=== PATIENT | male | born 1935 | race African-American/Black ===

== ENCOUNTER 2022-02-02 09:33 | Inpatient (IN) | payer OTHER ==
[2022-02-02] MEDS ORDERED: NA CHLORIDE 0.9% 500 ML ONE (10:36)
[2022-02-02 10:38] LABS: Hematocrit 32.6 % (39.6-49.0); MPV 8.1 fL (7.6-11.3); RBC Red Blood Cell Count 3.68 M/uL (4.33-5.43)
--- NOTE | 2022-02-02 10:49 | RAD REPORT ---
EXAM DESCRIPTION: CT - Head Brain Wo Cont - 02/02/2022 10:37 am CLINICAL HISTORY: AMS COMPARISON: No comparisons TECHNIQUE: All CT scans are performed using dose optimization technique as appropriate and may inclu de automated exposure control or mA/KV adjustment according to patient size. FINDINGS: No intracranial hemorrhage, hydrocephalus or extra-axial fluid collection.No areas of brai n edema or evidence of midline shift. Cerebral atrophy with moderate chronic small vessel ischemic ch anges. The paranasal sinuses and mastoids are clear. The calvarium is intact. IMPRESSION: No acute intracranial abnormality.
[2022-02-02 10:53] LABS: Albumin 2.4 g/dL (3.4-5.0); Bilirubin Total 0.9 mg/dL (0.2-1.0); Magnesium 1.8 mg/dL (1.8-2.4); Potassium 3.9 mmol/L (3.5-5.1); Protein, Total 6.1 g/dL (6.4-8.2); Troponin High Sensitivity 15.4 pg/mL (<58.9)
[2022-02-02 11:27] LABS: Urine Blood 3+ (Negative); Urine Glucose Negative (Negative); Urine Protein 3+ (Negative); Urine Specific Gravity 1.025 (1.005-1.030); Urine pH 7.5 (5.0-7.0)
--- NOTE | 2022-02-02 11:27 | RAD REPORT ---
EXAM DESCRIPTION: RAD - Chest Single View - 02/02/2022 11:15 am CLINICAL HISTORY: confusion COMPARISON: Chest Single View dated 02/23/2017 FINDINGS: Lines: None. Lungs: Question right upper lobe pulmonary nodules. The left lung is clear. Radiopacity overlying the patient's body obscures portions of the right lung base . Pleural: No significant pleural effusions or pneumothorax. Cardiac: The heart size is within normal limits. Bones: No acute fractures. Other: IMPRESSION: No definite acute process. Right upper lobe pulmonary nodules which can be reassessed wi th either follow-up chest radiograph in [address]
[2022-02-02 11:55] LABS: Urine Bacteria >50 /HPF (NONE SEEN); Urine Mucus 2+ /HPF (NONE SEEN); Urine RBC 20-50 /HPF (NONE SEEN); Urine Urothelial Cells <5 /HPF (NONE SEEN)
[2022-02-02] MEDS ORDERED: HYDRALAZINE HCL 20 MG/ML VIAL ONE (12:17)
[2022-02-02] MEDS ORDERED: CEFTRIAXONE 1000 MG/VIAL ONE (12:17)
[2022-02-02] MEDS ORDERED: NA CHLORIDE 0.9% 100 ML IV ONE (12:17)
--- NOTE | 2022-02-02 12:35 | ER ---
Nurse's Notes [facility] Name: Teo Mukherjee Jr Age: 86 yrs Sex: Male : 1935 Arrival Date: 02/02/2022 Time: 09:39 Bed 17 Private MD: Diagnosis: UTI/ Urinary tract infection, site not specified;Altered mental status, unspecified Presentation: 02/02 09:40 Chief complaint: EMS states: CLOUDY URINE. Coronavirus screen: At this time, the client bp does not indicate any symptoms associated with coronavirus-19. Ebola Screen: No symptoms or risks identified at this time. Initial Sepsis Screen: Does the patient meet any 2 criteria? No. Patient's initial sepsis screen is negative. Does the patient have a suspected source of infection? No. Patient's initial sepsis screen is negative. Risk Assessment: Do you want to hurt yourself or someone else? Patient reports no desire to harm self or others. Onset of symptoms is unknown. Care prior to arrival: Glucose check: 111. 09:40 Method Of Arrival: EMS: [facility] bp 09:40 Acuity: ISABELA 3 bp Triage Assessment: :43 General: Appears in no apparent distress. comfortable, unkempt, malnourished, Behavior bp is flat, listless. Pain: Unable to use pain scale. Does not appear to understand pain scale. EENT: No deficits noted. Neuro: Level of Consciousness is listless. Cardiovascular: No deficits noted. Respiratory: No deficits noted. GI: No signs and/or symptoms were reported involving the gastrointestinal system. : Parent/caregiver report the patient having ODIFEROUS, CLOUDY URINE. Derm: No deficits noted. Musculoskeletal: No deficits noted. Historical: - Allergies: :43 No Known Allergies; bp - Home Meds: :43 Unable to obtain [Active]; bp - PMHx: :43 DEGENERATIVE JOINT DISEASE; bp - Immunization history:: Adult Immunizations unknown. - Social history:: Smoking status: Patient denies any tobacco usage or history of. - Unable to obtain history due to: poor historians. Screenin:45 Abuse screen: Denies threats or abuse. Denies injuries from another. Nutritional bp screening: No deficits noted. Tuberculosis screening: No symptoms or risk factors identified. Fall Risk None identified. Assessment: :45 General: SEE TRIAGE NOTE. bp 10:49 Reassessment: PT RETURNED FROM CT. bp 11:35 Reassessment: No changes from previously documented assessment. Patient and/or family bp updated on plan of care and expected duration. Pain level reassessed. BROOKS PLACED, PURULENCE NOTED UNDER FORESKIN. 12:50 Reassessment: D/C ON HOLD PER PROVIDER. bp 15:00 Reassessment: No changes from previously documented assessment. Patient and/or family bp updated on plan of care and expected duration. Pain level reassessed. ADMIT INITIATED. 17:00 Reassessment: SEE ER HOLD. bp 19:57 Reassessment: Patient appears in no apparent distress at this time. Registration was joan called and is at bedside, as the pt is being admitted and has a room assignment of 224. Report is being called now. 20:02 Reassessment: Hillary MCGEE is in a pt room, but will call me back for report. joan 20:10 Reassessment: Report given to Hillary and she said that they will get an air mattress joan for the pt, for comfort. Vital Signs: 09:40 BP 170 / 101; Pulse 80; Resp 16; Temp 98.3; Pulse Ox 99% ; bp 09:41 BP 171 / 100; Pulse 74; Resp 16; Temp 98.3(O); Pulse Ox 100% ; Weight 52.16 kg (R); mb7 Height 5 ft. 10 in. (177.80 cm) (R); 10:30 BP 170 / 102; Pulse 65; Resp 16; Pulse Ox 99% ; bp 11:30 BP 183 / 91; Pulse 72; Resp 15; Pulse Ox 99% ; bp 12:30 BP 114 / 63; Pulse 70; Resp 15; Pulse Ox 98% ; bp 13:30 BP 146 / 73; Pulse 74; Resp 16; Pulse Ox 97% ; bp 14:30 BP 127 / 70; Pulse 67; Resp 16; Pulse Ox 97% ; bp 15:30 BP 144 / 87; Pulse 73; Resp 16; Pulse Ox 98% ; bp 16:30 BP 123 / 71; Pulse 59; Resp 16; Pulse Ox 98% ; bp 17:30 BP 149 / 84; Pulse 69; Resp 16; Pulse Ox 99% ; bp 18:30 BP 157 / 86; Pulse 77; Resp 15; Pulse Ox 99% ; bp 19:56 BP 135 / 68; Pulse 72; Resp 18; Temp 98.3; Pulse Ox 97% on R/A; Pain 0/10; joan 09:41 Body Mass Index 16.50 (52.16 kg, 177.80 cm) mb7 ED Course: 09:39 Patient arrived in ED. iw 09:40 Clemente Bell, RN is Primary Nurse. bp 09:41 Patient has correct armband on for positive identification. Bed in low position. Call mb7 light in reach. Side rails up X 1. Door closed. Noise minimized. Warm blanket given. 09:42 Triage completed. bp 09:43 Arm band placed on. bp 10:03 Jennifer Ayala PA is PHCP. en 10:03 Shady Lester MD is Attending Physician. en 10:35 Inserted saline lock: 18 gauge in left EJ, using aseptic technique. Blood collected. bp 10:39 CT Head Brain wo Cont In Process Unspecified. EDMS 11:17 CXR XRAY In Process Unspecified. EDMS 11:28 Brooks cath inserted, using sterile technique, 16 Fr., by nh, balloon inflated, to mb7 gravity drainage, clamped. urine specimen collected. returned cloudy urine. Patient tolerated well. 11:28 Urine Microscopic Only Sent. mb7 11:37 EKG done, by ED staff, reviewed by Jennifer ELIAS. mb7 12:52 Cachorro Fierro MD is Hospitalizing Provider. en 19:56 No provider procedures requiring assistance completed. joan 19:56 Patient admitted, IV remains in place. joan Administered Medications: 10:18 CANCELLED (Other Intervention Used): NS 0.9% 1000 ml IV at 1 bolus Per protocol; 1000 bp mL bolus 10:49 Drug: NS 0.9% 500 ml Route: IV; Rate: 1 bolus; Site: left jugular; bp 12:51 Follow up: IV Status: Completed infusion; IV Intake: 500ml bp 12:15 Drug: Rocephin (cefTRIAXone) 1 grams Route: IV; Rate: bolus; Site: left jugular; bp 12:51 Follow up: IV Status: Completed infusion; IV Intake: 100ml bp 12:15 Drug: hydrALAZINE 10 mg Route: IVP; Site: left jugular; bp 12:52 Follow up: Response: No adverse reaction bp Medication: 09:45 VIS not applicable for this client. bp Intake: 12:51 IV: 100ml; Total: 100ml. bp 12:51 IV: 500ml; Total: 600ml. bp Outcome: 12:34 Discharge ordered by MD. en 12:53 Decision to Hospitalize by Provider. en 19:56 Condition: stable joan 19:56 Admitted to joan 21:03 Patient left the ED. joan Signatures: Dispatcher [employer] EDSalena Turner RN RN iw Peltier, Brian, RN RN Racheal Riley mb7 Justine Pagan RN RN bo Newkirk, Elizabeth, PA PA en
--- NOTE | 2022-02-02 12:35 | EDPHYS ---
Physician Documentation [facility] Name: Teo Mukherjee Jr Age: 86 yrs Sex: Male : 1935 Arrival Date: 02/02/2022 Time: 09:39 Bed 17 Private MD: ED Physician Shady Lester HPI: 02/02 10:53 This 86 yrs old Black Male presents to ER via EMS with unknown complaint. en 10:53 86 yo M presents to ED with for intermittent confusion over past 2 days, en hallucinating, and strong smelling urine. Pt and family are poor historians. They deny medical hx, but pt is bed bound with BUE/LE chronic contractures. Pt reports PSHx of bowel resection > 10 years ago for unk reason. Mild abdominal pain without F/C/N/V. Normal bowl movements without diarrhea, melena, hematochezia. Pt reports urinary hesitancy without dysuria or hematuria. no previous UTIs per . Pt is currently A\\T\\O x 3 and currently at baseline mentation per .. Historical: - Allergies: 09:43 No Known Allergies; bp - Home Meds: 09:43 Unable to obtain [Active]; bp - PMHx: 09:43 DEGENERATIVE JOINT DISEASE; bp - Immunization history:: Adult Immunizations unknown. - Social history:: Smoking status: Patient denies any tobacco usage or history of. - Unable to obtain history due to: poor historians. ROS: 10:53 Constitutional: Negative for fever, chills, and weight loss. en 10:53 Constitutional: Positive for decreased po intake x 2 days. 10:53 Abdomen/GI: Positive for abdominal pain, mild diffuse abdominal pain, Negative for nausea, vomiting, and diarrhea, constipation, hematemesis, black/tarry stool. 10:53 Back: Negative for 10:53 : Positive for foul smelling urine. 10:53 MS/extremity: Positive for chronic contractures, not ambulatory. 10:53 Skin: Negative for rash. 10:53 Neuro: Positive for intermittent confusion. 10:53 Psych: Positive for auditory hallucinations. 10:53 All other systems are negative. Exam: 10:53 Constitutional: The patient appears elderly appearing, cachectic male, bed dependent en with chronic contractures 10:53 Eyes: Pupils: no acute changes, equal, round, and reactive to light and accomodation, Extraocular movements: no acute changes, Conjunctiva: normal. 10:53 ENT: Dental exam: dental caries. 10:53 Neck: DROM 2/2 chronic deconditioning. No midline TTP or meningismus. 10:53 Cardiovascular: Rate: normal, Rhythm: regular, Pulses: no pulse deficits are appreciated, Heart sounds: normal, Edema: is not appreciated. 10:53 Respiratory: the patient does not display signs of respiratory distress, Respirations: normal, Breath sounds: are clear throughout. 10:53 Abdomen/GI: Bowel sounds: normal, Palpation: abdomen is soft and non-tender, mass, rebound tenderness, voluntary guarding, involuntary guarding. 10:53 Back: vertebral tenderness, is not appreciated. 10:53 : CVA tenderness, is absent. 10:53 Musculoskeletal/extremity: chronic BUE/BLE contractures, no peripheral edema. 10:53 Neuro: Orientation: is normal, appropriate for stated age, to person, place \\T\\ time. Mentation: appropriate for stated age. 12:35 Constitutional: This is a well developed, well nourished patient who is awake, alert, en and in no acute distress. Vital Signs: 09:40 BP 170 / 101; Pulse 80; Resp 16; Temp 98.3; Pulse Ox 99% ; bp 09:41 BP 171 / 100; Pulse 74; Resp 16; Temp 98.3(O); Pulse Ox 100% ; Weight 52.16 kg (R); mb7 Height 5 ft. 10 in. (177.80 cm) (R); 10:30 BP 170 / 102; Pulse 65; Resp 16; Pulse Ox 99% ; bp 11:30 BP 183 / 91; Pulse 72; Resp 15; Pulse Ox 99% ; bp 12:30 BP 114 / 63; Pulse 70; Resp 15; Pulse Ox 98% ; bp 13:30 BP 146 / 73; Pulse 74; Resp 16; Pulse Ox 97% ; bp 14:30 BP 127 / 70; Pulse 67; Resp 16; Pulse Ox 97% ; bp 15:30 BP 144 / 87; Pulse 73; Resp 16; Pulse Ox 98% ; bp 16:30 BP 123 / 71; Pulse 59; Resp 16; Pulse Ox 98% ; bp 17:30 BP 149 / 84; Pulse 69; Resp 16; Pulse Ox 99% ; bp 18:30 BP 157 / 86; Pulse 77; Resp 15; Pulse Ox 99% ; bp 19:56 BP 135 / 68; Pulse 72; Resp 18; Temp 98.3; Pulse Ox 97% on R/A; Pain 0/10; joan 09:41 Body Mass Index 16.50 (52.16 kg, 177.80 cm) mb7 MDM: 10:12 Patient medically screened. en 10:53 Differential Diagnosis altered mental status, UTI, CVA, failure to thrive, dehydration. en Data reviewed: vital signs, nurses notes, lab test result(s), EKG, radiologic studies. 11:44 Data interpreted: personnel monitor: rate is 75 beats/min, rhythm is sinus rhythm with en PVC, Pulse oximetry: on room air. 11:44 Test interpretation: by ED physician or midlevel provider: ECG. en 12:07 ED course: Pt has remained A\\T\\O x 3 throughout stay. normal labs other than UTI. No e/o en sepsis and Vitals stable. Will give single dose rocephin and send UA for culture. Will d/c home with omnicef pending cultures and PCP f/u. 12:33 ED course: Pt doing well. Reviewed labs. Pt does not meet admission criteria so will do en course of PO abx and close PCP f/u. ER return warnings reviewed. 12:35 Data reviewed: lab test result(s), urinalysis, bacteruria. en 12:49 ED course: Pt is more confu. ED course: Pt's family reports pt is now more confused and en A\\T\\O x 2. Thinks he is standing up. Will hold d/c and admit for confusion and UTI. ED course: Accepted by Dr Franz. 02/02 10:16 Order name: CBC w/o diff; Complete Time: 11:51 en 02/02 10:16 Order name: CMP; Complete Time: 11:51 en 02/02 10:16 Order name: UA en 02/02 10:16 Order name: Troponin High Sensitivity; Complete Time: 11:51 en 02/02 10:16 Order name: Magnesium; Complete Time: 11:51 en 02/02 10:20 Order name: Urine Microscopic Only bp 02/02 11:28 Order name: Urine Dipstick-Ancillary; Complete Time: 11:51 EDMS 02/02 11:51 Order name: Urine Culture en 02/02 14:19 Order name: Basic Metabolic Panel EDMS 02/02 14:19 Order name: Basic Metabolic Panel EDMS 02/02 14:19 Order name: CBC with Automated Diff EDMS 02/02 14:19 Order name: CBC with Automated Diff EDMS 02/02 14:19 Order name: Magnesium EDMS 02/02 14:19 Order name: Magnesium EDMS 02/02 10:16 Order name: EKG; Complete Time: 10:17 en 02/02 10:16 Order name: CT Head Brain wo Cont; Complete Time: 11:51 en 02/02 10:16 Order name: CXR XRAY; Complete Time: 11:51 en 02/02 10:20 Order name: EKG - Nurse/Tech; Complete Time: 11:37 bp 02/02 10:20 Order name: Cath; Complete Time: 11:28 bp 02/02 10:20 Order name: Urine Dipstick-Ancillary (obtain specimen); Complete Time: 11:28 bp 02/02 14:19 Order name: Heart Healthy EDMS 02/02 14:23 Order name: SARS-COV-2 RT PCR (Document "Date of Onset" if Symptomatic) eb Administered Medications: 10:18 CANCELLED (Other Intervention Used): NS 0.9% 1000 ml IV at 1 bolus Per protocol; 1000 bp mL bolus 10:49 Drug: NS 0.9% 500 ml Route: IV; Rate: 1 bolus; Site: left jugular; bp 12:51 Follow up: IV Status: Completed infusion; IV Intake: 500ml bp 12:15 Drug: Rocephin (cefTRIAXone) 1 grams Route: IV; Rate: bolus; Site: left jugular; bp 12:51 Follow up: IV Status: Completed infusion; IV Intake: 100ml bp 12:15 Drug: hydrALAZINE 10 mg Route: IVP; Site: left jugular; bp 12:52 Follow up: Response: No adverse reaction bp Disposition Summary: 02/02/22 12:53 Hospitalization Ordered Hospitalization Status: Inpatient Admission en Provider: Cachorro Fierro Condition: Stable(02/02/22 12:53) en Problem: new en Symptoms: are unchanged en Bed/Room Type: Standard en Location: Telemetry/MedSurg (Inpatient)(02/02/22 19:32) cg Room Assignment: 224(02/02/22 19:32) cg Diagnosis - UTI/ Urinary tract infection, site not specified(02/02/22 12:53) en - Altered mental status, unspecified en Forms: - Medication Reconciliation Form en - SBAR form en Signatures: Dispatcher [employer] Maggi Loco RN RN cg Clemente Bell RN RN bp Jennifer Ayala PA PA en Corrections: (The following items were deleted from the chart) 10:18 10:16 NS 0.9% 1000 ml IV at 1 bolus Per protocol; 1000 mL bolus ordered. en bp 12:52 12:34 Home en en 12:52 12:34 Stable en en 12:52 12:34 UTI/ Urinary tract infection, site not specified en en 12:52 12:34 Essential (primary) hypertension en en 18:42 12:53 Telemetry/MedSurg (Inpatient) en bp 18:42 12:53 en bp 19:32 18:42 [facility] ER HOLD bp cg 19:32 18:42 ERHOLD- bp cg
[2022-02-02] MEDS ORDERED: ONDANSETRON 4 MG/2 ML VIAL IV PRN (14:08)
--- NOTE | 2022-02-02 14:17 | P.HP ---
Certification for Inpatient Patient admitted to: Inpatient With expected LOS: >2 Midnights Practitioner: I am a practitioner with admitting privileges, knowledge of patient current condition, hospital course, and medical plan of care. Services: Services provided to patient in accordance with Admission requirements found in Title 42 Section 412.3 of the Code of Federal Regulations Patient History Date of Service: 02/02/22 Reason for admission: Encephalopathy, UTI. History of Present Illness: 86-year-old male patient with medical history significant for status post bowel resection for yet to be determined reason, bedbound status secondary to quadriplegia who was evaluated in ER for episode of altered mentation and said to have had issues with foul-smelling urine and frequency of urination. As per family at bedside he has been having episode of altered mentation for the past 2 days and there was no issues with overt loss of consciousness. No fever, chills, nausea, vomiting, diarrhea reported. In the ER lab work revealed UA that is highly concerning for UTI and there was concern for possible underlying septic condition. Patient was pancultured and started on broad-spectrum antibiotic of Rocephin and he was admitted for inpatient care. Allergies No Known Allergies Allergy (Verified 02/23/17 14:23) Home Medications: Pantoprazole [Protonix Tab*] 40 mg PO DAILYAC #30 tab 02/24/17 traMADol HCL [Ultram*] 50 mg PO TIDP PRN #30 tab 02/24/17 - Past Medical/Surgical History Diabetic: No -: Tobacco abuse -: Chronic back pain -: Abdominal surgery for obstruction -: Neck surgery Psychosocial/ Personal History: Patient is over 50 years. He has 3 children. He previously worked as a traveling construction superintendent. - Social History Alcohol use: No CD- Drugs: No Caffeine use: Yes Review of Systems General: Weakness, Malaise Eyes: Unremarkable ENT: Unremarkable Respiratory: Unremarkable Cardiovascular: Unremarkable Gastrointestinal: Unremarkable Genitourinary: Frequency Musculoskeletal: Other (quadriplegia) Integumentary: Unremarkable Neurological: Weakness, Confusion Physical Examination - Physical Exam General: Alert HEENT: Atraumatic, Normocephalic Neck: Supple Respiratory: Normal air movement Cardiovascular: Regular rate/rhythm, Normal S1 S2 Gastrointestinal: Soft and benign Musculoskeletal: Contractures, Other (paralysis and deformity of all limbs.) Neurological: Normal speech - Studies Laboratory Data (last 24 hrs) 02/02/22 10:30: Sodium 141, Potassium 3.9, BUN 18, Creatinine 0.30 L, Glucose 92, Magnesium 1.8, Total Bilirubin 0.9, AST 25, ALT 16, Alkaline Phosphatase 78 02/02/22 10:30: WBC 5.7, Hgb 10.8 L, Hct 32.6 L, Plt Count 214 Assessment and Plan - Plan Toxic metabolic encephalopathy: Patient does have altered mentation just secondary to urinary tract infection as source of suspected sepsis. We will try ill-equipped to thicken as UA was highly concerning. Empiric antibiotic of Rocephin to be continued pending further review. Sepsis: Present on admission. Patient does have UTI and altered mentation as determined condition. We will continue present care with Rocephin empirically pending urine culture finalization. Will adjust based on culture report UTI: UA slightly concerning. Empiric antibiotic with Rocephin started. Monitor culture report for adjustment. Quadriplegia: Continue with same care and supports. Failure to thrive: Patient does look malnourished. Continue supplement 3 times daily as outpatient Yard Specialist to evaluate Prophylaxis: Lovenox for DVT prophylaxis CODE STATUS: Full code pending further review Disposition: For discharge once patient is deemed clinically stable. - Advance Directives Does patient have a Living Will: No Does patient have a Durable POA for Healthcare: No
[2022-02-02] MEDS: NA CHLORIDE 0.9% 1,000 ML IV SCH (15:00)
[2022-02-02 16:20] VITALS: BMI 16.5
[2022-02-02] MEDS ORDERED: NA CHLORIDE 0.9% 1,000 ML ONE (18:17)
[2022-02-03] MEDS: NA CHLORIDE 0.9% 1,000 ML IV SCH ×3 (04:20→17:40)
[2022-02-03] MEDS ORDERED: TRAMADOL HCL 50 MG TAB PO PRN (08:27)
[2022-02-03] MEDS ORDERED: LABETALOL 20 MG/4ML SYRINGE IV PRN (08:28)
[2022-02-03 09:40] LABS: Absolute Lymphocytes (CBC) 0.6 K/uL (0.7-4.9); Hematocrit 35.3 % (39.6-49.0); MPV 8.8 fL (7.6-11.3); RBC Red Blood Cell Count 4.01 M/uL (4.33-5.43)
[2022-02-03 09:41] LABS: Magnesium 1.8 mg/dL (1.8-2.4); Potassium 3.2 mmol/L (3.5-5.1)
[2022-02-03] MEDS: AMLODIPINE 10 MG TAB PO SCH (09:48)
[2022-02-03] MEDS: CEFTRIAXONE 1,000 MG in NA CHLORIDE 0.9% 50 ML IVPB SCH (09:49)
[2022-02-03] MEDS: ENOXAPARIN 40 MG/0.4 ML SQ SCH (09:49)
[2022-02-03] MEDS: PANTOPRAZOLE 40MG TABLET PO SCH (09:49)
[2022-02-03] MEDS: LABETALOL HCL 100 MG/20 ML IV PRN ×2 (09:53→20:35)
[2022-02-03 11:12] LABS: Blood Morphology Comment NOT SEEN (NOT SEEN); Platelet Estimate ADEQ; White Blood Cell Scan OK (OK)
[2022-02-03] MEDS ORDERED: MAGNESIUM SULFATE 1 gm IVPB 1 GM/100 ML BAG IV ONE (13:00)
[2022-02-03] MEDS ORDERED: POTASSIUM 25 MEQ EFFERV TAB PO ONE (13:00)
--- NOTE | 2022-02-03 14:47 | EKG ---
Test Date: 2022-02-02 Test Time: 11:31:59 Air Brush Decorator: MB MEASUREMENT RESULTS: Intervals: Rate: 75 IL: 192 QRSD: 68 QT: 412 QTc: 460 [place]: P: 110 IL: 192 QRS: 53 T: 78 INTERPRETIVE STATEMENTS: Sinus rhythm with premature supraventricular complexes Otherwise normal ECG Compared to ECG 02/23/2017 11:48:23 Atrial premature complex(es) now present Electronically Signed On 02-03-22 14:47:10 CDT by Antolin Phillips
--- NOTE | 2022-02-03 15:36 | P.PN ---
Subjective Date of Service: 02/03/22 Chief Complaint: Encephalopathy, UTI. Subjective: No new changes, Improving Physical Examination - Vital Signs Temperature: 97.5 F Blood Pressure: 180/130 Pulse: 75 Respirations: 20 Pulse Ox (%): 98 - Physical Exam General: Alert, Oriented x3 HEENT: Atraumatic, Normocephalic Neck: Supple Respiratory: Normal air movement Cardiovascular: Regular rate/rhythm, Normal S1 S2 Gastrointestinal: Soft and benign Musculoskeletal: Other (quadriplegia) Neurological: Normal speech Assessment And Plan - Plan Toxic metabolic encephalopathy: Resolved. Empiric antibiotic of Rocephin to be continued pending further review. Sepsis: Present on admission. Patient does have UTI and altered mentation as determined condition. We will continue present care with Rocephin empirically pending urine culture finalization. Will adjust based on culture report. UTI: UA slightly concerning. Empiric antibiotic with Rocephin started. Monitor culture report for adjustment. Quadriplegia: Continue with routine care and supports. Failure to thrive: Patient does look malnourished. Continue supplement 3 times daily as outpatient Utility Locate Technician to evaluate Prophylaxis: Lovenox for DVT prophylaxis CODE STATUS: Full code pending further review Disposition: For discharge once patient is deemed clinically stable.
[2022-02-03] MEDS ORDERED: POTASSIUM CL SA 10 MEQ TAB PO ONE (23:59)
[2022-02-04] MEDS: NA CHLORIDE 0.9% 1,000 ML IV SCH ×2 (00:08→14:35)
[2022-02-04 06:02] LABS: Magnesium 2.1 mg/dL (1.8-2.4); Potassium 3.7 mmol/L (3.5-5.1)
[2022-02-04] MEDS: PANTOPRAZOLE 40MG TABLET PO SCH (06:26)
[2022-02-04] MEDS ORDERED: POTASSIUM 25 MEQ EFFERV TAB PO ONE (09:00)
[2022-02-04] MEDS ORDERED: CEFTRIAXONE 1000 MG/VIAL ONE (10:14)
[2022-02-04] MEDS ORDERED: NA CHLORIDE 0.9% 50 ML ONE (10:17)
[2022-02-04] MEDS: CEFTRIAXONE 1,000 MG in NA CHLORIDE 0.9% 50 ML IVPB SCH (10:23)
[2022-02-04] MEDS: ENOXAPARIN 40 MG/0.4 ML SQ SCH (10:24)
[2022-02-04] MEDS: AMLODIPINE 10 MG TAB PO SCH (10:25)
[2022-02-04 18:42] VITALS: O2SAT 99
[2022-02-04] MEDS: ACETAMINOPHEN 500 MG TAB PO PRN (20:26)
[2022-02-05] MEDS: ACETAMINOPHEN 500 MG TAB PO PRN (00:19)
[2022-02-05] MEDS: NA CHLORIDE 0.9% 1,000 ML IV SCH (02:24)
[2022-02-05] MEDS: PANTOPRAZOLE 40MG TABLET PO SCH (05:50)
[2022-02-05 08:33] VITALS: BP 124/67; TEMP 98.4
== END 2022-02-05 08:48 | disposition home health service (06) | DRG 871 ==
LOC: ER 09:33 → ERHOLD 14:15 → 2ND 19:56
PROVIDERS: ADMIT Internal Medicine Nephrology; ATTEND Internal Medicine Nephrology
DX: A41.9 Sepsis, unspecified organism (principal); G92.8 Other toxic encephalopathy; G82.50 Quadriplegia, unspecified; N39.0 Urinary tract infection, site not specified; Z68.1 Body mass index [BMI] 19.9 or less, adult; E46 Unspecified protein-calorie malnutrition; F17.200 Nicotine dependence, unspecified, uncomplicated; R62.7 Adult failure to thrive; M19.90 Unspecified osteoarthritis, unspecified site; Z20.822 Contact with and (suspected) exposure to COVID-19
CPT/HCPCS: 36415; 51702; 70450; 71045; 80048; 80053; 81003; 81015; 83735; 84132; 84484; 85025; 85027; 87077; 87086; 87088; 87186; 93005; 96361; 96365; 96375; 99285; J0360; J1650; J3475; J7030; J7040; U0003